=== PATIENT | male | born 1960 | race African-American/Black ===

== ENCOUNTER 2020-04-21 23:17 | Emergency (ER) | payer MEDICAID, OTHER ==
[~2020-04-21] VITALS: Ht 190.5 cm; Wt 91.0 kg
[2020-04-21 23:20] VITALS: BP 108/80
== END 2020-04-21 23:39 | disposition left against medical advice (07) ==
LOC: ER 23:17
DX: Z53.21 Procedure and treatment not carried out due to patient leaving prior to being seen by health care provider (principal); I49.9 Cardiac arrhythmia, unspecified
CPT/HCPCS: 93005

== ENCOUNTER 2025-02-15 20:30 | Emergency (ER) | payer MEDICAID, OTHER ==
[~2025-02-15] VITALS: Ht 185.4 cm; Wt 84.9 kg
[2025-02-15 20:55] VITALS: TEMP 36.7
[2025-02-15 21:29] VITALS: PULSE 70; RESP 24; O2SAT 98
[2025-02-15] MEDS: ALBUTEROL (0.083%) 2.5MG/3ML NEB HHN SCH (21:29)
[2025-02-15 21:30] LABS: BASOPHILS % 0.6 % (0.0-2.0); EOSINOPHILS % 8.9 % (0.0-5.0); HEMATOCRIT. 42.8 % (42.0-52.0); HEMOGLOBIN. 13.3 g/dL (14.0-18.0); LYMPHOCYTES % 53.1 % (20.0-50.0); MEAN PLATELET VOLUME 9.7 fl (7.4-10.4); MONOCYTES % 11.2 % (2.0-8.0); NEUTROPHILS % 26.2 % (40.0-76.0); PLATELET 187 x1000/uL (130-400); RED BLOOD CELL COUNT 5.53 mill/uL (4.7-6.1); RED CELL DISTRIBUTION WIDTH 15.5 % (11.6-14.6)
[2025-02-15 21:44] LABS: CREATININE 1.1 mg/dL (0.6-1.3); UREA NITROGEN BLOOD 6 mg/dL (9-23)
[2025-02-15 21:45] LABS: PROTEIN TOTAL 6.5 g/dL (6.0-8.3); TROPONIN I HIGH SENSITIVITY 4 ng/L (3.0-53)
[2025-02-15 21:46] LABS: ASPARTATE AMINOTRANSFERASE 19 IU/L (<34); BILIRUBIN DIRECT 0.3 mg/dL (<=3.0); BILIRUBIN TOTAL 0.9 mg/dL (0.1-1.0)
[2025-02-15] MEDS: METHYLPREDNISOLONE SOD SUCC 125MG/2ML (ACT-O-VIAL) IV ONE (22:02)
[2025-02-15 22:03] LABS: BG DEOXYHEMOGLOBIN 19.0 % (0.0-5.0)
[2025-02-15] MEDS: AZITHROMYCIN 500MG/250ML 250 ML IV ONE (22:32)
[2025-02-15] MEDS ORDERED: P50 MT (22:49)
[2025-02-15] MEDS ORDERED: AZIT250T12 MT (22:49)
[2025-02-15] MEDS ORDERED: IPRA3AMP9 NEB (22:49)
[2025-02-15] MEDS ORDERED: ALBU18HF2 IH (22:49)
[2025-02-15 23:21] VITALS: BP 157/87; PULSE 97; RESP 20; O2SAT 95
[2025-02-15 23:38] LABS: INFLUENZA TYPE A Presumptive Negative (Pres. Neg.)
[2025-02-15 23:39] LABS: INFLUENZA TYPE B Presumptive Negative (Pres. Neg.)
[2025-02-24] MEDS ORDERED: AMLO10TA80 MT (11:54)
[2025-02-24] MEDS ORDERED: HYDR100T11 MT (11:54)
[2025-02-24] MEDS ORDERED: FLUT1DIS3 INH (11:54)
[2025-02-24] MEDS ORDERED: IPRA3AMP9 NEB (11:54)
[2025-02-24] MEDS ORDERED: ALBU18HF2 IH (11:54)
[2025-02-24] MEDS ORDERED: P50 MT (11:54)
== END 2025-02-15 23:27 | disposition home or self-care (01) ==
LOC: ER 20:30 → CMPBEDREQ 02-17 10:34
DX: J20.9 Acute bronchitis, unspecified (principal); I10 Essential (primary) hypertension; Z79.899 Other long term (current) drug therapy; Z20.822 Contact with and (suspected) exposure to COVID-19
CPT/HCPCS: 80076; 80048; 83880; 85025; 84484; 87804 ×2; 36415; 71045; 94640; 82375; 82803; 93005; 96365; 96375; 99285; 87426; J0456; J2919; Z7610 ×2; 94760